=== PATIENT | female | born 1985 | race Caucasian/White ===

== ENCOUNTER 2019-06-04 01:21 | Outpatient (CLI) | payer MEDICAID, SELFPAY ==
--- NOTE | 2019-06-04 09:30 | DI.US_ITS ---
EXAM: US PELVIS TRANSVAGINAL CLINICAL HISTORY: AUB, ABNL UTERINE BLEEDING, N93.9. TECHNIQUE: Transabdominal and transvaginal pelvic ultrasound was performed using standard protocol. COMPARISON: No previous for comparison. FINDINGS: KIDNEYS: Kidneys are symmetric in size. No evidence of renal calculi. No evidence of hydronephrosis. No renal mass or cyst identified. UTERUS: Position: Anteverted. Size: 8.8 x 4.3 x 5.2 cm Endometrium: 1.4 cm. Mild heterogeneous echogenicity but no discrete mass. Myometrium: Unremarkable. Cervix: Unremarkable. OVARIES: Right: 3 x 1.9 x 1.7 cm Cyst or mass: Small follicular cysts. No suspicious mass. Left: 2.5 x 1.1 x 1.3 cm Cyst or mass: Small follicular cysts. No suspicious mass. DOPPLER: Color: Symmetric and uniform flow to both ovaries. No hyperemia. Duplex: Normal ovarian arterial waveforms visualized. CUL-DE-SAC: Free fluid: No significant free fluid. Other: None. IMPRESSION: 1. Normal sonographic appearance of the kidneys. 2. Mildly heterogeneous endometrial stripe measuring 1.4 cm thickness. No discrete mass is identifie d. A follow-up pelvic ultrasound may be considered for re-evaluation of the endometrial stripe. 3. Unremarkable bilateral ovaries. DATA REPOSITORY:
[2019-06-04 09:56] LABS: HGB 14.2 g/dL (12.0-15.5); Mean Corp. HGB Concentration 33.8 g/dL (32.0-36.0); Mean Corpuscular Hemoglobin 32.8 pg (27.0-33.0); Mean Platelet Volume 8.4 fL (8.0-11.0); Platelet Count 326 x1000/uL (130-400); RBC 4.33 m/cumm (4.00-5.20); RBC Distribution Width 12.6 % (11.7-14.6); White Blood Cell Count 7.02 k/cumm (4.4-10.8)
[2019-06-04 10:51] LABS: TSH (W/Ref FT4) 2.18 uIU/mL (0.36-3.74)
== END 2019-06-04 01:41 ==
PROVIDERS: PCP Nurse Practitioner; Visit Provider Nurse Practitioner Women's Health
DX: N93.9 Abnormal uterine and vaginal bleeding, unspecified (principal); N83.01 Follicular cyst of right ovary; R53.83 Other fatigue
CPT/HCPCS: 36415; 85027; 76830; 76856; 84443

== ENCOUNTER 2019-07-15 11:34 | Outpatient (REF) | payer MEDICAID, SELFPAY ==
--- NOTE | 2019-07-15 10:30 | ENDOMET_PTH ---
PATIENT: Sushila Guevara LOC: [facility] U#:[id number] AGE/SX: 33/F ROOM: RE07/15/[address]: Flori Hernandez NP : 1985 BED: DIS: 07/15/2019 SPEC #: [id number] RECD: 07/15/19 11:50 STATUS: AGUS RELizabeth #: [id number] DEMETRIO: 07/15/19 10:[address]: David CURTIS,Flori DEPT: Surgical Specimen RECD BY: Lj Gamez ENTERED: 07/15/19 11:51 SP TYPE: Endomet OTHR DR: Mely Davis, PhD INSPECTOR AND TESTER Tissues: 1 - ENDOMETRIUM BX/CARLA Procedures: GROSS AND MICRO LEVEL 4 Comments: [id number]
--- NOTE | 2019-07-15 10:30 | PAPFT_PTH ---
PATIENT: Sushila Guevara LOC: [facility] U#:[id number] AGE/SX: 33/F ROOM: RE07/15/[address]: Flori Hernandez NP : 1985 BED: DIS: 07/15/2019 SPEC #: [id number] RECD: 07/15/19 12:23 STATUS: AGUS [place] #: [id number] DEMETRIO: 07/15/19 10:[address]: Flori Hernandez NP DEPT: [facility] Cytology RECD BY: Lj Gamez ENTERED: 07/15/19 12:23 SP TYPE: PAPFT OTHR DR: Mely Davis, PhD REPAIR SERVICE DISPATCHER Tissues: 1 - CX/ENDOCX FOR PAP SMEARS Procedures: PAP THIN PREP/UVM Screening HPV DNA PROBE Comments: [id number]
== END 2019-07-15 11:54 ==
LOC: LBN 11:34
PROVIDERS: PCP Nurse Practitioner; Visit Provider Nurse Practitioner Women's Health
DX: N85.01 Benign endometrial hyperplasia (principal); N93.8 Other specified abnormal uterine and vaginal bleeding; N92.5 Other specified irregular menstruation; Z12.4 Encounter for screening for malignant neoplasm of cervix; Z11.51 Encounter for screening for human papillomavirus (HPV)
CPT/HCPCS: 88142; 88305; 87624

== ENCOUNTER 2019-08-11 02:40 | Outpatient (CLI) | payer MEDICAID, SELFPAY ==
[2019-08-11 10:57] LABS: HCT 41.7 % (36.0-46.0); Mean Corp. HGB Concentration 33.6 g/dL (32.0-36.0); Mean Corpuscular Hemoglobin 32.8 pg (27.0-33.0); Mean Corpuscular Volume 97.7 fL (80-95); Mean Platelet Volume 8.7 fL (8.0-11.0); Platelet Count 323 x1000/uL (130-400); RBC 4.27 m/cumm (4.00-5.20); RBC Distribution Width 13.1 % (11.7-14.6); White Blood Cell Count 7.32 k/cumm (4.4-10.8)
[2019-08-11 11:41] LABS: Anion Gap 9.2 mmol/L (3-11); BUN 16 mg/dL (7-18); CO2 26.8 mmol/L (21.0-32.0); CREATININE 0.63 mg/dL (0.55-1.02); Calcium 9.3 mg/dL (8.5-10.1); Chloride 101 mmol/L (98-107); Glucose 95 mg/dL (74-106); Potassium 4.2 mmol/L (3.5-5.1); Sodium 137 mmol/L (136-145)
[2019-08-11 11:42] LABS: HCG Quant, Pregnancy < 1 mIU/mL (1-3)
[2019-08-12 08:18] LABS: COVID-19 RT-PCR UVMMC Result Positive (Negative)
== END 2019-08-11 03:00 ==
PROVIDERS: PCP Nurse Practitioner; Visit Provider Obstetrics & Gynecology Gynecology
DX: N94.6 Dysmenorrhea, unspecified (principal); N93.9 Abnormal uterine and vaginal bleeding, unspecified; Z11.59 Encounter for screening for other viral diseases; Z01.818 Encounter for other preprocedural examination; Z01.812 Encounter for preprocedural laboratory examination
CPT/HCPCS: 36415; 80048; 85027; 86850; 86900; 86901; U0003; 84702

== ENCOUNTER 2019-08-18 08:54 | Outpatient (CLI) | payer MEDICAID, SELFPAY ==
[2019-08-20 07:20] LABS: COVID-19 RT-PCR Result NEGATIVE (Negative)
== END 2019-08-18 09:14 ==
PROVIDERS: PCP Nurse Practitioner; Visit Provider Nurse Practitioner
DX: Z11.59 Encounter for screening for other viral diseases (principal)
CPT/HCPCS: U0003

== ENCOUNTER 2019-09-22 01:28 | Outpatient (CLI) | payer MEDICAID, SELFPAY ==
[2019-09-24 14:51] LABS: COVID-19 RT-PCR Result NEGATIVE (Negative)
== END 2019-09-22 01:48 ==
PROVIDERS: PCP Nurse Practitioner; Visit Provider Obstetrics & Gynecology Gynecology
DX: Z11.59 Encounter for screening for other viral diseases (principal)
CPT/HCPCS: U0003

== ENCOUNTER 2019-09-22 08:33 | Outpatient (CLI) | payer MEDICAID, SELFPAY ==
[2019-09-22 10:10] LABS: HCT 41.8 % (36.0-46.0); HGB 13.7 g/dL (12.0-15.5); Mean Corp. HGB Concentration 32.8 g/dL (32.0-36.0); Mean Corpuscular Hemoglobin 32.2 pg (27.0-33.0); Mean Corpuscular Volume 98.1 fL (80-95); Mean Platelet Volume 8.6 fL (8.0-11.0); Platelet Count 318 x1000/uL (130-400); RBC 4.26 m/cumm (4.00-5.20); RBC Distribution Width 12.8 % (11.7-14.6); White Blood Cell Count 6.99 k/cumm (4.4-10.8)
[2019-09-22 10:57] LABS: Anion Gap 8.8 mmol/L (3-11); BUN 16 mg/dL (7-18); CO2 27.2 mmol/L (21.0-32.0); CREATININE 0.64 mg/dL (0.55-1.02); Calcium 9.4 mg/dL (8.5-10.1); Chloride 101 mmol/L (98-107); Glucose 101 mg/dL (74-106); Potassium 4.6 mmol/L (3.5-5.1); Sodium 137 mmol/L (136-145)
[2019-09-22 10:58] LABS: HCG Quant, Pregnancy < 1 mIU/mL (1-3)
== END 2019-09-22 08:53 ==
PROVIDERS: PCP Nurse Practitioner; Visit Provider Obstetrics & Gynecology Gynecology
DX: N93.9 Abnormal uterine and vaginal bleeding, unspecified (principal); N94.6 Dysmenorrhea, unspecified; Z01.818 Encounter for other preprocedural examination; Z01.812 Encounter for preprocedural laboratory examination
CPT/HCPCS: 36415; 80048; 85027; 86850; 86900; 86901; 84702

== ENCOUNTER 2019-09-24 07:08 | Day surgery (SDC) | payer MEDICAID, SELFPAY ==
[2019-09-24 07:30] VITALS: BP 118/76; PULSE 68; RESP 16; TEMP 36.3; O2SAT 99
[2019-09-24] MEDS: Lactated Ringers 1,000 ML 125 ML IV (07:45)
[2019-09-24] MEDS: Bupivacaine 0.25% Pres-Free 30 ML VIAL (11:31)
[2019-09-24] MEDS: Silver Nitrate Stick 1 EACH (11:54)
--- NOTE | 2019-09-24 12:04 | W.PM.DSUDISC ---
Discharge Plan Disposition Patient Disposition: HOME Condition: Good Discharge Details Reason For Visit: hydrothermal endometrial ablation Attending Provider: Mary Carranza Primary Care Provider: Mely Davis Home Meds and New Rx's Prescriptions: No Action cbd oil 20 mg PO/SL BID RF: 0 fluoxetine 20 mg tablet 20 mg PO DAILY Qty: 90 RF: 3 cholecalciferol (vitamin D3) 125 mcg (5,000 unit) tablet 125 mcg PO DAILY RF: 0 vitamin B complex [B-Complex] 1 EACH tablet 1 ea PO DAILY RF: 0 omega-3 fatty acids-fish oil 1 EACH capsule 1 ea PO DAILY RF: 0 Vitamin D3 Complete 18 mg iron-800 mcg-150 mg tablet 1 tab PO DAILY RF: 0 Discharge Instructions Additional Instructions: You will have watery vaginal discharge from your vagina for the next 3 to 4 weeks. Stand Alone Forms: DSU Post Gynecology Surgery Activity:: Activity as Tolerated Diet:: As Tolerated Discharge Orders Discharge Orders: Discharge Order (Routine); Ordered 09/24/19 Ordered By: Mary Carranza DS: Diagnosis Discharge Diagnosis (1) History of endometrial ablation: Status: Acute
[2019-09-24 12:29] VITALS: BP 140/82; PULSE 57; RESP 16; TEMP 36.1; O2SAT 97
[2019-09-24] MEDS: Ketorolac 30 MG/ML VIAL IVP ×2 (12:29)
--- NOTE | 2019-09-24 13:10 | ROE_ITS ---
Date of service: 09/24/19 Time of Service: 13:11 Operative Note Operative Note DATE OF PROCEDURE: 09/24/19 PRE-OP DIAGNOSIS: abnormal uterine bleeding POST-OP DIAGNOSIS: same PROCEDURE: hydrothermal endometrial ablation SURGEON: Mary Carranza ANESTHESIA: MAC ESTIMATED BLOOD LOSS: 0 PATHOLOGY: none sent COMPLICATIONS: None Patient was transported to: same day Patient's condition: stable Indications: 33yo female with a history of abnormal uterine bleeding who declined hormonal treatment. Secretory endometrium on endometrial biopsy in July 2019. Patient was counseled regarding treatment options and agreed to an endometrial ablation. Findings: Normal-appearing uterine cavity. Both tubal ostia were visualized. No intracavitary filling defects. Procedure Description: Patient was taken to the operating room where she was placed in the dorsal supine position and monitored anesthesia care was administered without difficulty. SCDs were in place. Surgical timeout was performed and the patient was placed in the dorsal lithotomy position in yellowfin stirrups prepped and draped in the usual sterile fashion. A bivalve speculum was placed in the vagina and the anterior lip of the cervix was infiltrated with 1 cc of 0.25% Marcaine without epinephrine. A single-tooth tenaculum was used to grasp the anterior lip of the cervix. A paracervical block was performed with quarter percent Marcaine at the 4 and 8:00 cervical vaginal interface bilaterally. Hydrothermal sheath attached to hysteroscope was introduced into the uterine cavity with normal saline as the distention medium. A cavity assessment was performed and there is no evidence of fluid leakage. Th e solution was warmed to a temperature of 90 ?C and over the course of 10 minutes the uterine cavity was treated under direct visualization. At the completion of the procedure the cavity fluid was cooled and the uterine cavity inspected. There was a satisfactory treatment response. The hydrothermal sheath and hysteroscope were removed without difficulty. The single-tooth tenaculum was removed from the patient's vagina the site was treated with silver nitrate and all instruments were removed and the patient's vagina. All sponge lap needle counts were correct x2. She was awakened and transported to recovery area in stable condition.
== END 2019-09-24 13:20 | disposition home or self-care (01) ==
PROVIDERS: PCP Nurse Practitioner; Visit Provider Obstetrics & Gynecology Gynecology
PROC: (CPT 58353; principal; 2019-09-24 08:30)
DX: N93.8 Other specified abnormal uterine and vaginal bleeding (principal)
CPT/HCPCS: 58563; J1100; J1885; J2001; J2250; J2405; J2704; J3010

== ENCOUNTER 2022-04-27 00:28 | Outpatient (CLI) | payer MEDICAID, SELFPAY ==
--- NOTE | 2022-04-27 07:45 | DI.RAD_ITS ---
Exam(s) XR SHOULDER LT COMPLETE 2+V EXAM: XR SHOULDER LT COMPLETE 2+V CLINICAL HISTORY: left shoulder pain,m25.512. TECHNIQUE: 2D digital imaging was performed. COMPARISON: No exams were available for comparison FINDINGS: Four views: No evidence of fracture or dislocation. Subacromial space exhibits normal height and no calcificatio ns. No degenerative changes in the glenohumeral and AC joints. Ipsilateral clavicle unremarkable. IMPRESSION: No significant osseous findings the shoulder. DATA REPOSITORY: RADIATION DOSE DELIVERED:
--- NOTE | 2022-04-27 07:45 | DI.US_ITS ---
Exam(s) US UPPER EXTREMITY VENOUS LT EXAM: US UPPER EXTREMITY VENOUS LT CLINICAL HISTORY: lt shoulder pain, m25.512, ? dvt TECHNIQUE: GRAYSCALE, COLOR, DOPPLER IMAGING OF THE VENOUS SYSTEM OF THE UPPER EXTREMITY-BILATERAL COMPARISON: None FINDINGS: Basilic vein: Patent. Normal color-flow and normal compression and augmentation properties. Brachial vein(s):Patent. Normal color flow. Normal compression and augmentation properties. Cephalic vein:Patent. Normal color flow. Normal compression and augmentation properties. Axillary vein: Patent. Normal color flow. Normal compression and augmentation properties. Visualized subclavian vein: Patent. No obvious intraluminal thrombus. IMPRESSION: 1. No evidence of venous thrombosis in the left upper extremity. 2. DATA REPOSITORY:
== END 2022-04-27 00:48 ==
LOC: DI 00:29
PROVIDERS: PCP Nurse Practitioner Family; Visit Provider Nurse Practitioner Family
DX: M25.512 Pain in left shoulder (principal)
CPT/HCPCS: 73030; 93971

== ENCOUNTER 2022-05-01 12:31 | Outpatient (REF) | payer MEDICAID, SELFPAY ==
--- NOTE | 2022-05-01 12:00 | PAPFT_PTH ---
PATIENT: Sushila Guevara LOC: [facility] #:[id number] AGE/SX: 36/F ROOM: RE05/01/[address]: CHRISTA Moore : 1985 BED: DIS: 05/01/2022 SPEC #: [id number] RECD: 05/02/22 12:55 STATUS: AGUS REQ #: [id number] DEMETRIO: 05/01/22 12:[address]: Estephania Johnson DEPT: [facility] Cytology RECD BY: Nicki Lewis Tissues: 1 - CX/ENDOCX FOR PAP SMEARS Procedures: PAP THIN PREP/UVM Screening HPV DNA PROBE Comments: [id number]
== END 2022-05-01 12:32 | disposition home or self-care (01) ==
LOC: LBN 12:31
PROVIDERS: PCP Nurse Practitioner Family; Visit Provider Nurse Practitioner Family
DX: Z12.4 Encounter for screening for malignant neoplasm of cervix (principal); Z11.51 Encounter for screening for human papillomavirus (HPV)
CPT/HCPCS: 88142; 87624

== ENCOUNTER 2022-05-18 03:00 | Outpatient (CLI) | payer MEDICAID, SELFPAY ==
[2022-05-18 11:59] LABS: Anion Gap 12.1 mmol/L (3-11); BUN 12 mg/dL (7-18); CO2 26.9 mmol/L (21.0-32.0); CREATININE 0.6 mg/dL (0.55-1.02); Calcium 9.7 mg/dL (8.5-10.1); Calculated LDL 138 mg/dL (<100); Chloride 99 mmol/L (98-107); Cholesterol 237 mg/dL (<200); Estimated GFR 119.97 (mL/min/1.73m2); Glucose 88 mg/dL (74-106); HDL Cholesterol 85 mg/dL (40-60); Potassium 4.1 mmol/L (3.5-5.1); Sodium 138 mmol/L (136-145); Triglyceride 73 mg/dL (<150)
== END 2022-05-18 03:01 | disposition home or self-care (01) ==
LOC: LBO 03:00
PROVIDERS: PCP Nurse Practitioner Family; Visit Provider Nurse Practitioner Family
DX: F41.8 Other specified anxiety disorders (principal); E66.8 Other obesity; Z00.00 Encounter for general adult medical examination without abnormal findings
CPT/HCPCS: 36415; 80048; 80061

== ENCOUNTER 2022-08-02 05:21 | Outpatient (CLI) | payer MEDICAID, SELFPAY ==
[2022-08-02 14:53] LABS: ESR 12 mm/hr (0-20)
[2022-08-02 15:37] LABS: C-Reactive Protein 0.91 mg/dL (0.0-0.3)
[2022-08-02 22:02] LABS: Rheumatoid Factor 9.6 IU/mL (<12.0)
[2022-08-03 15:30] LABS: ANA Interpretation Negative (Negative)
[2022-08-04 16:26] LABS: Lyme Ab w Rflx to Lyme Confirm Negative (Negative)
[2022-08-05 18:45] LABS: Anaplasma phagocytophilum Negative (Negative); B. miyamotoi PCR Negative (Negative); Babesia divergens/MO-1 Negative (Negative); Babesia duncani Negative (Negative); Babesia microti Negative (Negative); Ehrlichia chaffeensis Negative (Negative); Ehrlichia ewingii/canis Negative (Negative); Ehrlichia muris eauclairensis Negative (Negative)
== END 2022-08-02 05:22 | disposition home or self-care (01) ==
LOC: LBO 05:21
PROVIDERS: PCP Nurse Practitioner Family; Visit Provider Nurse Practitioner Family
DX: M25.511 Pain in right shoulder (principal); M25.512 Pain in left shoulder; M25.551 Pain in right hip; M25.552 Pain in left hip
CPT/HCPCS: 36415; 85652; 87798; 86038; 86140; 86431; 86618

== ENCOUNTER → 2023-06-28 03:19 | Outpatient (CLI) | payer MEDICAID, SELFPAY ==
--- NOTE | 2023-06-28 09:00 | DI.US_ITS ---
Exam(s) US PELVIS TRANSVAGINAL EXAM: US PELVIS TRANSVAGINAL CLINICAL HISTORY: uterine fibroid,ABNL UTERINE BLEEDING,N93.9. TECHNIQUE: Transabdominal and transvaginal pelvic ultrasound was performed using standard protocol. COMPARISON: US US PELVIS TRANSVAGINAL from 06/04/2019 FINDINGS: UTERUS: Position: Anteverted. Size: 8.1 long by 4.3 AP by 4.2 transverse cm Endometrium: 0.4 cm. Normal for patient's menstrual status. Myometrium: Unremarkable. Cervix: Unremarkable. OVARIES: Right: 1.8 x 1.3 x 1.7 cm Cyst or mass: No suspicious cystic or solid masses. Left: 2.7 x 1.3 x 2.9 cm Cyst or mass: No suspicious cystic or solid masses. DOPPLER: Color: Symmetric and uniform flow to both ovaries. CUL-DE-SAC: Free fluid: None. Other: None. IMPRESSION: 1. Normal-appearing uterus with endometrial stripe within normal limits. 2. Unremarkable bilateral ovaries. DATA REPOSITORY:
== END ==
PROVIDERS: PCP Nurse Practitioner Family; Visit Provider Nurse Practitioner Family
DX: N93.9 Abnormal uterine and vaginal bleeding, unspecified (principal)
CPT/HCPCS: 76830; 76856

== ENCOUNTER 2023-07-11 05:43 | Outpatient (CLI) | payer MEDICAID, SELFPAY ==
[2023-07-11 13:28] LABS: Abs Immature Grans 0.01 10^3/uL (0.0-0.06); Absolute Basophil Count 0.04 10^3/uL (0.0-0.2); Absolute Eosinophil Count 0.19 10^3/uL (0.0-0.7); Absolute Lymphocyte Count 1.96 10^3/uL (1.2-3.4); Absolute Monocyte Count 0.49 10^3/uL (0.1-0.8); Absolute Neutrophil Count 3.81 10^3/uL (1.2-6.7); Basophils % 0.6 %; Eosinophils % 2.9 %; HCT 38.9 % (36.0-46.0); HGB 13.1 g/dL (11.2-15.7); Immature Grans % 0.2 %; Lymphocytes % 30.2 %; MCHC 33.7 % (32.0-36.0); MCV 98 fL (80-95); MPV 8.3 fL (8.0-11.0); Monocytes % 7.5 %; Neutrophils % 58.6 %; Platelet Count 316 10^3/uL (130-400); RBC 3.97 10^6/uL (3.93-5.22); RDW 12.2 % (11.7-14.6); RDW-SD 44.7 fL
[2023-07-11 14:14] LABS: Hemoglobin A1C 5.2 % (<5.7)
[2023-07-11 15:03] LABS: ALT 29 U/L (14-59); AST 15 U/L (15-37); Alkaline Phosphatase 68 U/L (46-116); Anion Gap 10.8 mmol/L (3-11); BUN 19 mg/dL (7-18); Bilirubin, Total 0.3 mg/dL (0.2-1.0); CO2 26.2 mmol/L (21.0-32.0); CREATININE 0.7 mg/dL (0.55-1.02); Calcium 8.8 mg/dL (8.5-10.1); Calculated LDL 125 mg/dL (<100); Chloride 100 mmol/L (98-107); Cholesterol 225 mg/dL (<200); Estimated GFR 114.88 (mL/min/1.73m2); Glucose 101 mg/dL (74-106); HDL Cholesterol 83 mg/dL (40-60); Sodium 137 mmol/L (136-145); Total Protein 7.1 g/dL (6.4-8.2); Triglyceride 85 mg/dL (<150)
[2023-07-11 23:14] LABS: Estradiol 37 pg/mL (See Note)
[2023-07-11 23:36] LABS: FSH 7.1 mIU/mL (See Note); Prolactin 9.9 ng/mL (See Note)
[2023-07-12 00:18] LABS: Hepatitis C Ab w Rflx HCV PCR Negative (Negative)
== END 2023-07-11 05:44 | disposition home or self-care (01) ==
LOC: LBO 05:44
PROVIDERS: PCP Nurse Practitioner Family; Visit Provider Nurse Practitioner Family
DX: Z00.00 Encounter for general adult medical examination without abnormal findings (principal); N93.9 Abnormal uterine and vaginal bleeding, unspecified; K21.9 Gastro-esophageal reflux disease without esophagitis; E78.5 Hyperlipidemia, unspecified
CPT/HCPCS: 36415; 80053; 80061; 86803; 82670; 83001; 83036; 84146; 84443; 85025

== ENCOUNTER → 2023-09-14 01:54 | Outpatient (CLI) | payer MEDICAID, SELFPAY ==
--- NOTE | 2023-09-14 08:00 | DI.MRI_ITS ---
Exam(s) MR UPPER JOINT LT WO EXAM: MR UPPER JOINT LT WO CLINICAL HISTORY: left shoulder pain, limited ROM, G89.29, M25.512. TECHNIQUE: Multiplanar multisequence MRI was performed. COMPARISON: CR XR SHOULDER LT COMPLETE 2+V from 04/27/2022 FINDINGS: BONES: There is no fracture or contusion pattern. JOINTS: Mild degenerative changes are seen at the acromioclavicular joint. The glenohumeral joint is normal. No joint effusion is seen. TENDONS: Supraspinatus: There is tendinosis of the supraspinatus tendon. No evidence of a rotator cuff tear. Infraspinatus: Unremarkable. Subscapularis: Unremarkable. Teres Minor: Unremarkable. Biceps and Mcdonough: Unremarkable. MUSCLES: Unremarkable. GLENOID LABRUM: Unremarkable on this noncontrast examination. SOFT TISSUES: Unremarkable. LIGAMENTS: Unremarkable. OTHER: Subacromial and subdeltoid bursae are unremarkable. IMPRESSION: 1. Supraspinatus tendinosis. 2. No evidence of a rotator cuff tear or labral tear on this noncontrast examination. 3. Mild degenerative changes seen at the acromioclavicular joint. DATA REPOSITORY:
== END ==
PROVIDERS: PCP Nurse Practitioner Family; Visit Provider Nurse Practitioner Family
DX: M25.512 Pain in left shoulder (principal); G89.29 Other chronic pain; M67.814 Other specified disorders of tendon, left shoulder
CPT/HCPCS: 73221

== ENCOUNTER 2023-12-19 16:03 | Outpatient (CLI) | payer MEDICAID, SELFPAY ==
--- NOTE | 2023-12-19 16:00 | RT.EKG_ITS ---
APPROVED REPORT Exam: Resting ECG Reason for Exam: 3 syncopal episodes Patient Location: O HR:104 bpm ECG Measurements Heart Rate 104 AXIS TN 122 P 65 QRSd 87 QRS 31 QT 357 T 45 QTc 470 Conclusion Sinus tachycardia...rate> 99 Normal Electrocardiogram
== END 2023-12-19 16:04 | disposition home or self-care (01) ==
LOC: DI.CM 16:04
PROVIDERS: PCP Nurse Practitioner Family; Visit Provider Family Medicine
DX: R55 Syncope and collapse (principal)
CPT/HCPCS: 93010

== ENCOUNTER 2023-12-19 17:13 | Emergency (ER) | payer MEDICAID, SELFPAY ==
[2023-12-19] VITALS (26 sets, daily range): BP systolic 128–174; BP diastolic 65–110; PULSE 79–120; RESP 14–27; TEMP 35.9–36.9; O2SAT 98–100
--- NOTE | 2023-12-19 17:15 | RT.EKG_ITS ---
APPROVED REPORT Exam: Resting ECG Reason for Exam: Chest pain Patient Location: E HR:101 bpm ECG Measurements Heart Rate 101 AXIS GA 121 P 49 QRSd 82 QRS 31 QT 344 T 52 QTc 447 Conclusion Sinus tachycardia...rate> 99 Probable left atrial enlargement...P >50mS, <-0.10mV V1
--- NOTE | 2023-12-19 17:37 | ED.GENADUL_ITS ---
Discharge Plan Disposition Patient Disposition: Home Condition: Stable Discharge Details Clinical Impression: Chest pain, Palpitations Primary Care Provider: Estephania Johnson ED Provider: Rashida Smith Home Meds and New Rx's Prescriptions: Continued fexofenadine [Ivette Allergy] 180 mg tablet 180 mg PO DAILY lorazepam 0.5 mg tablet 0.5 mg PO DAILY PRN (Reason: panic attacks) Qty: 10 0RF pantoprazole [Protonix] 40 mg tablet,delayed release (DR/EC) 40 mg PO DAILY Qty: 90 6RF citalopram 20 mg tablet 20 mg PO DAILY Qty: 90 3RF No Action phentermine 30 mg capsule 30 mg PO DAILY Qty: 7 0RF phentermine 15 mg capsule 15 mg PO DAILY Qty: 7 0RF Rx Instructions: must administer 2 hours after breakfast sucralfate [Carafate] 1 gram tablet 1 g PO QACHS Qty: 120 1RF Discharge Instructions Instructions: Chest Pain, Adult ED, Palpitations ED Additional Instructions: No evidence of blood clot in your lung, no evidence of urinary tract infection, potassium is slightly low. Please increase your diet with potassium rich foods such as bananas around the next couple of days. Increase oral fluids. Follow up with primary care provider in 3-5 days. Return to ED sooner if any worsening or concerns. Please take Tylenol or Ibuprofen with food every 4-6 hours as needed for pain and swelling. Referrals: Estephania Johnson, EVER [Primary Care Provider] - 3 days Daisy Byrd MD [ [facility] STAFF PHYSICIAN] - 2 weeks (Palpitations, Chest Pain) Discharge Orders Other Ambulatory Orders: Holter Monitor (STAT) Timeframe: 20231226 Facility: [facility] - Location: Respiratory Therapy Ordered By: Rashida Smith [facility] General Mode of arrival: ambulatory . Date/Time Provider Initiated Documentation: 12/19/23 17:22 . Limitations to Documentation: no limitations . Information obtained by: patient, RN notes reviewed and old records reviewed . HPI Narrative: 38-year-old female presents with chief complaint of midsternal chest pain which began yesterday while grocery shopping. She reports near syncopal episodes as well. She reports constant chest pain with tachycardia and palpitations. She is tachycardic upon arrival with heart rate of 110, she is a occasional smoker, denies any drugs or alcohol denies any recent long trips in a car plane. Is not on control currently. She was on progesterone but not currently. She reports radiation of the pain into her back and neck. Denies any nausea vomiting or diarrhea. Related Data Home Medications ?Medication ?Instructions ?Recorded ?Confirmed fexofenadine 180 mg tablet 180 mg PO DAILY 04/10/22 12/19/23 (Ivette Allergy) citalopram 20 mg tablet 20 mg PO DAILY #90 tabs 02/28/23 12/19/23 lorazepam 0.5 mg tablet 0.5 mg PO DAILY PRN panic attacks 06/21/23 12/19/23 #10 tabs pantoprazole 40 mg tablet,delayed 40 mg PO DAILY #90 tabs 08/16/23 12/19/23 release (Protonix) phentermine 15 mg capsule 15 mg PO DAILY #7 caps 12/19/23 phentermine 30 mg capsule 30 mg PO DAILY #7 caps 12/19/23 sucralfate 1 gram tablet (Carafate) 1 g PO QACHS #120 tabs 12/19/23 Previous Rx's ?Medication ?Instructions ?Recorded citalopram 20 mg tablet 20 mg PO DAILY #90 tabs 02/28/23 lorazepam 0.5 mg tablet 0.5 mg PO DAILY PRN panic attacks 06/21/23 #10 tabs pantoprazole 40 mg tablet,delayed 40 mg PO DAILY #90 tabs 08/16/23 release (Protonix) phentermine 15 mg capsule 15 mg PO DAILY #7 caps 12/19/23 phentermine 30 mg capsule 30 mg PO DAILY #7 caps 12/19/23 sucralfate 1 gram tablet (Carafate) 1 g PO QACHS #120 tabs 12/19/23 Allergies Allergy/AdvReac Type Severity Reaction Status Date / Time house dust Allergy Intermediate rinitis Verified 12/19/23 17:20 General Stated Complaint: Chest Pain VITOR: 3 Review of Systems All systems reviewed & are unremarkable except as noted in HPI and below Cardiovascular Cardiovascular: Reports chest pain, Reports lightheadedness and Reports palpitations Endocrine Endocrine: Reports palpitations Exam Narrative Exam Narrative: Constitutional: Alert and oriented x3. Appears stated age. Normal body habitus. Head: Normocephalic, no trauma. Eyes: Pupils PERRL, Red reflex noted, EOM's intact. Eyelids symmetrical without lesions, discharge, or swelling. ENT: Bilateral TM's WNL, External ear normal to inspection, no mastoid TTP, swelling, or erythema, Nasal turbinates WNL, no nasal discharge. Normal dentition, Posterior pharynx WNL, no exudate. Chest: Tachycardic, normal S1, S2, distal pulses intact. Resp: Lungs clear to auscultation bilaterally, no wheezes, rales, or rhonchi. Abdomen: Soft, non-distended, Normoactive bowel sounds all 4 quads. Musculoskeletal: Normal gait, Moves all 4 extremities without difficulty. Skin: No suspicious rashes or lesions. Capillary refill less than 2 sec. Neurologic: Cranial nerves II-XII intact. Alert and oriented x 3. Motor: No deficits noted. Sensory: Intact bilaterally all 4 extremities. Hematologic/Lymphatic: No ecchymosis, no lymphadenopathy. Course Vital Signs Vital signs: Vital Signs Temperature 35.9 C L 12/19/23 17:14 Pulse 112 H 12/19/23 17:14 Respiratory Rate 15 12/19/23 17:14 Blood Pressure 159/109 H 12/19/23 17:14 Pulse Oximetry 99 12/19/23 17:14 Temperature 35.9 C L 12/19/23 17:14 Pulse 112 H 12/19/23 17:14 Respiratory Rate 15 12/19/23 17:14 Respiratory Effort Normal 12/19/23 17:17 Blood Pressure 159/109 H 12/19/23 17:14 Blood Pressure Position Sitting 12/19/23 17:14 Pulse Oximetry 99 12/19/23 17:14 Oxygen Delivery Method Room Air 12/19/23 17:14 Oxygen Flow Rate 0 12/19/23 17:14 Medical Decision Making 38-year-old female presents with chief complaint of midsternal chest pain which began yesterday while grocery shopping. She reports near syncopal episodes as well. She reports constant chest pain with tachycardia and palpitations. She is tachycardic upon arrival with heart rate of 110, she is a occasional smoker, denies any drugs or alcohol denies any recent long trips in a car plane. Is not on control currently. She was on progesterone but not currently. She reports radiation of the pain into her back and neck. Denies any nausea vomiting or diarrhea. Cardiac workup ordered including CBC CMP troponin, D-dimer, chest CT to rule out PE. CTA chest negative for PE. Heart rate has improved to 85-107, Labs are largely unremarkable. Will have patient follow-up with PCP return for any worsening. No evidence of PE at this time. No evidence of pneumonia. Discussed CT results with patient and family, order placed for Holter monitor and referral given for cardiology. Differential diagnosis includes not limited to anxiety, dysrhythmia, dehydration, All their questions were answered to the best my ability. Discussed strict return instructions home care and follow-up care. He verbalized understanding. This text was generated using [employer] dictation system, please disregard any oddities of phrase or misspellings. Medical Records Medical records reviewed: Yes I reviewed the patient's medical records. Imaging Data Radiologic Study: Imaging: CT Scan Radiologist's impression: FINDINGS: Pulmonary Arteries: No evidence of filling defect to suggest pulmonary emboli. Mediastinum and Kay: No dominant adenopathy or fluid collection. Pulmonary parenchyma: No consolidation or dominant measurable mass. Pleura: No effusion or pneumothorax. Heart: The heart is not dilated. No coronary artery calcifications are seen. Aorta: Thoracic aorta non-dilated. No dissection. Upper abdomen: No acute findings. Bones: Unremarkable for age. Tubes, Catheters, and Lines: None Soft tissues: Unremarkable. IMPRESSION: No evidence of pulmonary embolism or other acute abnormality in the chest. Lab Data Lab results reviewed: Yes I reviewed the patient's lab results. Labs: Laboratory Tests Range/Units 12/19/23 17:40 WBC (4.4-10.8) 10^3/uL 5.36 RBC (3.93-5.22) 10^6/uL 4.14 Hgb (11.2-15.7) g/dL 13.8 Hct (36.0-46.0) % 42.1 MCV (80-95) fL 102 H MCH (27.0-33.0) pg 33.3 H MCHC (32.0-36.0) % 32.8 RDW (11.7-14.6) % 12.6 Plt Count (130-400) 10^3/uL 286 MPV (8.0-11.0) fL 8.7 Immature Gran % % 0.2 Neutrophils % % 62.3 Lymphocytes % % 22.9 Monocytes % % 12.1 Eosinophils % % 1.9 Basophils % % 0.6 Nucleated RBC % (0.0-0.3) % 0.0 Absolute Neutrophils (1.2-6.7) 10^3/uL 3.34 Absolute Lymphocytes (1.2-3.4) 10^3/uL 1.23 Absolute Monocytes (0.1-0.8) 10^3/uL 0.65 Absolute Eosinophils (0.0-0.7) 10^3/uL 0.10 Absolute Basophils (0.0-0.2) 10^3/uL 0.03 D-Dimer (<500) ng/mlFEU 228 Sodium (136-145) mmol/L 144 Potassium (3.5-5.1) mmol/L 3.3 L Chloride (98-107) mmol/L 103 Carbon Dioxide (21.0-32.0) mmol/L 30.5 Anion Gap (3-11) mmol/L 10.5 BUN (7-18) mg/dL 6 L Creatinine (0.55-1.02) mg/dL 0.7 Est GFR (CKD-EPI 2020) (mL/min/1.73m2) 114.16 Glucose (74-106) mg/dL 129 H Calcium (8.5-10.1) mg/dL 9.2 Magnesium (1.8-2.4) mg/dL 1.9 Total Bilirubin (0.2-1.0) mg/dL 0.27 AST (15-37) U/L 18 ALT (14-59) U/L 27 Alkaline Phosphatase (46-116) U/L 73 Troponin I (<or=51) ng/L < 4 Total Protein (6.4-8.2) g/dL 7.7 Albumin (3.4-5.0) g/dL 3.9 Quality:SDOH Health Related Social Needs: No Data to Display PFSH All Active Problems (Updated 12/19/23 @ 19:57 by Rashida Smith NP) Palpitations (Acute) Chest pain (Acute) Chronic left shoulder pain (Acute) Dysfunctional uterine bleeding (Acute) Abnormal uterine bleeding (Chronic) Dysphagia (Chronic) GERD (gastroesophageal reflux disease) (Chronic) Migraine headache with aura (Chronic) Hyperlipidemia (Chronic) Generalized anxiety disorder (Chronic) Gluten intolerance (Chronic) Obesity (BMI 30-39.9) (Chronic) Medical History Abnormal Pap smear of cervix Surgical History Status post endovenous radiofrequency ablation of saphenous vein (04/04/13) S/P laparoscopic cholecystectomy History of bilateral tubal ligation History of endometrial ablation (09/24/19) Family History Mother , 56 sudden Hypertension COPD (chronic obstructive pulmonary disease) Father Depression Hypertension Brother No problems noted. Brother No problems noted. Brother No problems noted. Son No problems noted. Daughter No problems noted. Maternal Grandfather , age 71 Prostate cancer Paternal Grandfather No problems noted. Maternal Grandmother No problems noted. Paternal Grandmother Diabetes Social History Smoking/Tobacco Use Status: Current every day Tobacco Type: cigarettes Years smoked: 15 Tobacco: How many years used: 15 Second Hand Exposure: Yes Smoking risk assessment performed?: Yes Alcohol Intake: current Alcohol Intake frequency: a few times a week Alcohol type: hard liquor Drug use: Never Substance use type: does not use Details: alcohol: t-1, 2 drinks Caregiver/Support person: No Household members: spouse and children Housing: house Number of Children: 4 Communication Needs: None Do you need help understanding health information?: Rarely current occupation: cleans houses and caregives Pets and animals: Yes Pets and animals: dog(s) Sexually active: Yes Do you think of yourself as: straight/heterosexual Current gender identity: female What is your relationship status?: How often do you talk on the phone with friends or family?: twice per week How often do you get together with friends or relatives?: once per week How often do you attend rastafari or caodaism services?: 4 or more times per year Do you belong to any clubs or organized social groups?: no Panel score (0-1 are the most socially isolated patients): 3 What type of physical activity do you participate in: walking Duration: 30-45 minutes/day Frequency: 3-4 times per week Kassy/Latter Day: Yarsani Special kassy needs: No Seatbelt use: always Helmet use: Yes Helmet use: sometimes Drive intox or ride w/intox delivery motorcycle driver: No Do you feel safe at home: Yes Do you feel safe in your relationship?: Yes Female Reproductive History Menstrual control method: permanent sterilization History History 2 Para 2 Hx # Term Pregnancies Multiple births Hx # Pregnancies Ectopic pregnancies AB induced Hx Number of Living Children AB spontaneous PAWSS Have you Been Recently Intoxicated or Drunk Within the Last 30 days?: No Have you Ever Experienced Previous Episodes of Alcohol Withdrawal?: No Have you ever Experienced Withdrawal Seizures?: No Have you ever Experienced Delirium Tremens(DT)s?: No Have you ever undergone Alcohol Rehabilitation Treatment (i.e, inpt ot outpatient treatment programs)?: No Have you ever Experienced Blackouts?: No Have you ever Combined Alcohol with other Downers within the last 90 days?: No Have you ever Combined Alcohol with any other Substance of Abuse during the last 90 days?: No Positive Blood Alcohol level on Presentation? [PCS.BAL]: No Evidence of Increased Autonomic Activity (i.e. HR>120, tremor, sweating, agitation, nausea)?: No Result: 0
[2023-12-19 17:45] LABS: Abs Immature Grans 0.01 10^3/uL (0.0-0.06); Absolute Basophil Count 0.03 10^3/uL (0.0-0.2); Absolute Lymphocyte Count 1.23 10^3/uL (1.2-3.4); Absolute Monocyte Count 0.65 10^3/uL (0.1-0.8); Absolute Neutrophil Count 3.34 10^3/uL (1.2-6.7); Basophils % 0.6 %; Eosinophils % 1.9 %; HCT 42.1 % (36.0-46.0); HGB 13.8 g/dL (11.2-15.7); Immature Grans % 0.2 %; Lymphocytes % 22.9 %; MCH 33.3 pg (27.0-33.0); MCHC 32.8 % (32.0-36.0); MCV 102 fL (80-95); MPV 8.7 fL (8.0-11.0); Monocytes % 12.1 %; Neutrophils % 62.3 %; Platelet Count 286 10^3/uL (130-400); RBC 4.14 10^6/uL (3.93-5.22); RDW 12.6 % (11.7-14.6); RDW-SD 47.1 fL; WBC 5.36 10^3/uL (4.4-10.8)
[2023-12-19 18:04] LABS: ALT 27 U/L (14-59); AST 18 U/L (15-37); Albumin 3.9 g/dL (3.4-5.0); Alkaline Phosphatase 73 U/L (46-116); Anion Gap 10.5 mmol/L (3-11); BUN 6 mg/dL (7-18); Bilirubin, Total 0.27 mg/dL (0.2-1.0); CO2 30.5 mmol/L (21.0-32.0); CREATININE 0.7 mg/dL (0.55-1.02); Calcium 9.2 mg/dL (8.5-10.1); Chloride 103 mmol/L (98-107); Estimated GFR 114.16 (mL/min/1.73m2); Glucose 129 mg/dL (74-106); Magnesium 1.9 mg/dL (1.8-2.4); Potassium 3.3 mmol/L (3.5-5.1); Sodium 144 mmol/L (136-145); Total Protein 7.7 g/dL (6.4-8.2); Troponin I < 4 ng/L (<or=51)
[2023-12-19 18:17] LABS: D-Dimer 228 ng/mlFEU (<500)
[2023-12-19] MEDS: Normal Saline - Diluent 50 ML VIAL IJ (18:18)
[2023-12-19] MEDS: Omnipaque 350 MG/ML 100 ML BTL IJ (18:19)
--- NOTE | 2023-12-19 18:21 | DI.CT_ITS ---
Exam(s) CT CHEST PE CTA EXAM: CT CHEST PE CTA CLINICAL HISTORY: Chest Pain, Tachycardia. TECHNIQUE: Imaging Protocol: Axial CT angiography was performed with multi-slice acquisition and mu lti-planar reconstructions as well as axial, coronal and sagittal MIP reconstructions. CONTRAST MATERIAL: Intravenous: Omnipaque 350 Contrast volume:100 ml COMPARISON: No exams were available for comparison FINDINGS: Pulmonary Arteries: No evidence of filling defect to suggest pulmonary emboli. Mediastinum and Kay: No dominant adenopathy or fluid collection. Pulmonary parenchyma: No consolidation or dominant measurable mass. Pleura: No effusion or pneumothorax. Heart: The heart is not dilated. No coronary artery calcifications are seen. Aorta: Thoracic aorta non-dilated. No dissection. Upper abdomen: No acute findings. Bones: Unremarkable for age. Tubes, Catheters, and Lines: None Soft tissues: Unremarkable. IMPRESSION: No evidence of pulmonary embolism or other acute abnormality in the chest. RADIATION DOSE DELIVERED: Total DLP DATA REPOSITORY: All CT scans at this facility are submitted to the National Radiology Data Registry (NRDR) Dose Index Registry (DIR) with the [employer] ([employer]). RADIATION OPTIMIZATION: All CT scans at this facility use at least one of these dose optimization te chniques: automated exposure control; mA and/or kV adjustment per patient size (includes targeted exa ms where dose is matched to clinical indication); or iterative reconstruction.
[2023-12-19] MEDS: Aspirin 81 MG CHEW 324 MG CH (19:20)
[2023-12-19] MEDS: Potassium Chloride 20 MEQ TABCR 40 MEQ PO (19:21)
[2023-12-19] MEDS: Normal Saline 500 ML IV (19:22)
[2023-12-19 19:34] LABS: TSH (W/Ref FT4) 2.45 uIU/mL (0.36-3.74)
== END 2023-12-19 20:35 | disposition home or self-care (01) ==
PROVIDERS: Emergency Provider Registered Nurse Emergency; PCP Nurse Practitioner Family
DX: R07.9 Chest pain, unspecified (principal); R00.2 Palpitations; E78.5 Hyperlipidemia, unspecified; F17.210 Nicotine dependence, cigarettes, uncomplicated
CPT/HCPCS: 71275; 80053; 93005; 99285; 83735; 84443; 84484; 85025; 85379; 93010; 99284; J3490

== ENCOUNTER 2023-12-27 15:00 | Outpatient (RCR) | payer MEDICAID, SELFPAY ==
--- NOTE | 2024-01-02 13:15 | HOLTER_ITS ---
APPROVED REPORT Conclusion This is a 48-hour Holter monitor Rhythm throughout was sinus with an average heart rate of 108. 66, maximum 157 There are very rare isolated ventricular ectopic beats 2 premature atrial contractions were seen There was no atrial fibrillation, no SVT, no high-grade AV block, no pauses greater than 3 seconds No symptoms were reported
== END 2024-01-10 23:59 | disposition home or self-care (01) ==
LOC: CARDOPNVT 15:00
PROVIDERS: PCP Nurse Practitioner Family; Visit Provider Internal Medicine Cardiovascular Disease
DX: R07.9 Chest pain, unspecified (principal)
CPT/HCPCS: 93225; 93226

== ENCOUNTER 2024-01-21 09:23 | Outpatient (CLI) | payer MEDICAID, SELFPAY | END 2024-01-21 09:24 | disposition home or self-care (01) | PROVIDERS: PCP Nurse Practitioner Family; Visit Provider Nurse Practitioner Family | DX: R00.2 Palpitations (principal) | CPT/HCPCS: 93246 ==

== ENCOUNTER 2024-02-19 07:31 | Outpatient (CLI) | payer MEDICAID, SELFPAY ==
--- NOTE | 2024-02-19 13:49 | W.CARDEVENT ---
Date of service: 02/19/24 Time of Service: 13:49 Cardiac Event Recorder Referring Provider:: Estephania Johnson Indications:: Palpitations Cardiac Event Note: This is a cardiac event monitor. Patient was monitored for 13 days and 16 hours Predominant rhythm was sinus with an average heart rate of 109. Minimum was 58, maximum 177 There were rare ventricular ectopic beats There were very rare atrial premature beats There was no atrial fibrillation, no high-grade AV block, no pauses greater than 2 seconds. Patient's symptoms generally corresponded to sinus tachycardia rate 110 to 140 bpm
== END 2024-02-19 07:32 | disposition home or self-care (01) ==
LOC: CARDOPNVT 07:31
PROVIDERS: PCP Nurse Practitioner Family; Visit Provider Internal Medicine Cardiovascular Disease
DX: R00.2 Palpitations (principal)